=== PATIENT | female | born 2000 | race Caucasian/White ===

== ENCOUNTER 2019-10-09 05:07 | Emergency (ER) | payer BC ==
[2019-10-09] MEDS ORDERED: Ondansetron ODT TAB* 4 MG SL ONE (05:23)
--- NOTE | 2019-10-09 05:29 | ED ---
Abdominal Pain/Female - HPI Summary HPI Summary: Patient is a 19 y/o F presenting to the ED for a chief complaint of nausea and vomiting that began at approximately 18:00 on 10/08/19. Patient admits drinking 3-4 shots of vodka and eating sushi before her symptoms began. She took a nap and when she woke up, she began to have nausea and vomiting. She describes the vomit as bile and states the vomiting lasts for 30-45 minutes before resolving. She also notes diffuse abdominal pain that she rates as 4/10 in severity. She denies fever or diarrhea. Patient has had water and Gatorade to replenish her fluids. She denies any aggravating or alleviating factors. PSHx is significant for tonsillectomy. - History of Current Complaint Chief Complaint: EDNauseaVomitDiarrh Stated Complaint: NAUSEA PER PT Time Seen by Provider: 10/09/19 05:19 Hx Obtained From: Patient Onset/Duration: Sudden Onset, Still Present Timing: Minutes - 30-45 minutes Severity Initially: Moderate Severity Currently: Moderate Pain Intensity: 4 Pain Scale Used: 0-10 Numeric Location: Diffuse Aggravating Factor(s): Nothing Alleviating Factor(s): Nothing Associated Signs and Symptoms: Positive: Nausea, Vomiting. Negative: Fever, Diarrhea Allergies/Adverse Reactions: Allergies Allergy/AdvReac Type Severity Reaction Status Date / Time amoxicillin Allergy Hives Verified 10/09/19 05:10 soy Allergy Hives Verified 10/09/19 05:10 PMH/Surg Hx/FS Hx/Imm Hx Previously Healthy: Yes Endocrine/Hematology History: Denies: Hx Diabetes Cardiovascular History: Denies: Hx Hypercholesterolemia, Hx Hypertension, Hx Pacemaker/ICD Sensory History: Denies: Hx Legally Blind, Hx Deafness Opthamlomology History: Denies: Hx Legally Blind EENT History: Denies: Hx Deafness - Surgical History Surgical History: Yes Surgery Procedure, Year, and Place: Tonsillectomy Infectious Disease History: No Infectious Disease History: Denies: Traveled Outside the [place] in Last 30 Days - Family History Known Family History: Negative: Diabetes - Social History Occupation: Student Alcohol Use: Occasionally Hx Substance Use: No Substance Use Type: Reports: None Hx Tobacco Use: No Smoking Status (MU): Never Smoked Tobacco Review of Systems Negative: Fever Positive: Abdominal Pain - Diffuse, Vomiting, Nausea. Negative: Diarrhea All Other Systems Reviewed And Are Negative: Yes Physical Exam - Summary Physical Exam Summary: Appearance: Well-appearing, Well-nourished, lying in bed comfortably Skin: Warm, dry, no obvious rash Eyes: sclera anicteric, no conjunctival pallor ENT: mucous membranes moist, pharynx appears normal Neck: Supple, nontender Respiratory: Clear to auscultation, no signs of respiratory distress Cardiovascular: Normal S1, S2. No murmurs. Normal distal pulses in tibial and radial bilaterally. Abdomen: Soft, nontender, normal active bowel sounds present Musculoskeletal: Normal, Strength/ROM Intact Neurological: A&Ox3, awake and alert, mentation is normal, speech is fluent and appropriate Psychiatric: affect is normal, does not appear anxious or depressed Triage Information Reviewed: Yes Vital Signs On Initial Exam: Initial Vitals Temp Pulse Resp BP Pulse Ox 98 F 108 15 148/125 98 10/09/19 05:07 10/09/19 05:07 10/09/19 05:07 10/09/19 05:07 10/09/19 05:07 Vital Signs Reviewed: Yes Procedures - Sedation Patient Received Moderate/Deep Sedation with Procedure: No Diagnostics - Vital Signs Vital Signs Temp Pulse Resp BP Pulse Ox 10/09/19 05:07 98 F 108 15 148/125 98 - Laboratory Lab Statement: Any lab studies that have been ordered have been reviewed, and results considered in the medical decision making process. Re-Evaluation - Re-Evaluation First Eval Re-Evaluation Time: 06:10 Change: Improved Comment: At 06:10, patient is feeling better and ready for discharge. Abdominal Pain Fem Course/Dx - Course Course Of Treatment: Patient is a 19 y/o F presenting to the ED for a chief complaint of nausea and vomiting that began at approximately 18:00 on 10/08/19. Patient admits drinking 3-4 shots of vodka and eating sushi before her symptoms began. She took a nap and when she woke up, she began to have nausea and vomiting. She describes the vomit as bile and states the vomiting lasts for 30- 45 minutes before resolving. She also notes diffuse abdominal pain that she rates as 4/10 in severity. She denies fever or diarrhea. Patient has had water and Gatorade to replenish her fluids. She denies any aggravating or alleviating factors. PSHx is significant for tonsillectomy. On exam, unremarkable findings. In the ED course, patient was given Zofran 8 mg SL. At 06:10, patient is feeling better and ready for discharge. Patient will be discharged with a diagnosis of acute nausea and vomiting. Follow up with PCP within 2 days. - Diagnoses Provider Diagnoses: Nausea and vomiting Discharge ED - Sign-Out/Discharge Documenting (check all that apply): Patient Departure - Discharge - Discharge Plan Condition: Improved Disposition: HOME Prescriptions: Ondansetron ODT TAB* [Zofran 4 MG Odt TAB*] 8 mg PO Q6H PRN #10 tab.odt PRN Reason: Nausea Patient Education Materials: Acute Nausea and Vomiting (ED) Referrals: [facility] [Z.BUSINESS, APPLICATION, OTHER] - 2 Days (if needed) - Billing Disposition and Condition Condition: IMPROVED Disposition: Home - Attestation Statements Document Initiated by Rochellee: Yes Documenting Scribe: Sharmila Sims Provider For Whom Tuyet is Documenting (Include Credential): John Ramires MD Scribe Attestation: Sharmila Dickinson, scribed for John Ramires MD on 10/09/19 at 0647. Scribe Documentation Reviewed: Yes Provider Attestation: The documentation as recorded by the Sharmila belcher accurately reflects the service I personally performed and the decisions made by John wolfe MD Status of Scribe Document: Viewed
[2019-10-09 06:31] VITALS: BP 121/67
== END 2019-10-09 06:32 | disposition home or self-care (01) ==
LOC: ED 05:07
DX: R11.2 Nausea with vomiting, unspecified (principal); R10.84 Generalized abdominal pain; Z88.0 Allergy status to penicillin
CPT/HCPCS: 99282; A9270-GY